=== PATIENT | female | born 2005 | race Hispanic/Latino ===

== ENCOUNTER 2025-09-09 16:09 | Emergency (ER) | payer SELFPAY ==
[~2025-09-09] VITALS: Ht 157.5 cm; Wt 72.6 kg
[2025-09-09 17:28] LABS: IMMATURE GRANULOCYTE ABSOLUTE 0.02 K/uL (0-1); NUCLEATED RED BLOOD CELLS 0.0 % (0.0-0.19); PLATELET COUNT (AUTO) 340 K/uL (130-400); RED BLOOD CELL COUNT(AUTO) 4.78 MIL/uL (4.00-5.50); RED CELL DISTRIBUTION WIDTH 13.6 % (11.0-15.5); WHITE BLOOD COUNT (AUTO) 9.4 K/uL (4.8-10.8)
[2025-09-09 17:36] LABS: CREATININE 0.6 mg/dL (0.5-1.0); GLOMERULAR FILTR. RATE CALC 132.0 mL/min (>90); GLUCOSE,RANDOM 88.0 mg/dL (70-105); SODIUM SERUM 138.0 mmol/L (136-145); UREA NITROGEN, BLOOD 9.0 mg/dL (7-18)
[2025-09-09] MEDS ORDERED: DOCU-116 PO (18:50)
--- NOTE | 2025-09-09 18:50 | ERN ---
ED Note History of Present Illness Stated Complaint: RECTAL BLEEDING Chief Complaint: Rectal Bleed Time Seen by MD: 16:19 Time Seen by Midlevel: 16:19 Dictation: The patient is a 20-year-old female with no past medical history who presents to the emergency department with complaints of bright red stools onset a month ago. Patient reports that bleeding is only when she has a bowel movement and reports rectal pain. Patient denies any abdominal pain, denies any constipation, denies any fevers, denies any nausea or vomiting. Allergies: Coded Allergies: No Known Drug Allergies (Unverified Allergy, Unknown, 09/09/25) Past Medical History Past Medical History: No Pertinent History Surgical History: None LMP: Aug 28, 2025 RN Note Reviewed/Agreed w/PFSH: Yes Review of System Dictation Constitutional: Negative for fever,chills, and weight loss Eyes: Negative for injury, pain,redness, and discharge ENT: Negative for injury,pain or swelling Cardiovascular: Negative for chest pain, palpitations, and edema Respiratory: Negative for shortness of breath, cough, and wheezing, Abdomen/GI: Negative for abdominal pain, nausea, vomiting, diarrhea, and constipation Back: Negative for injury and pain : Positive for rectal pain, bloody stools MS/Extremity: Negative for injury and deformity Skin: Negative for rash, and discoloration Neuro: Negative for headache, weakness, numbness, tingling, and seizure Psych: Negative for suicide ideation, homicidal ideation, and hallucinations Initial Vital Sign VS Vital Signs Date Time Temp Pulse Resp B/P (MAP) Pulse Ox O2 Delivery O2 Flow Rate FiO2 09/09/25 16:10 98.2 61 20 126/79 99 Room Air 09/09/25 18:34 0 21 Physical Exam Dictation Vital Signs reviewed General Appearance: Alert, oriented x 3, no acute distress, well developed, nourished. Head and Face: non-traumatic. Eyes: PERRL, pink conjunctivas, eyelid no trauma, anterior chamber with arcus senilis. Ears: Pinnas intact and no signs of trauma or erythema ear canals clear and no discharge TM no erythema Nose: No discharge, no bleeding. Oropharynx: Mouth normal, tongue pink. pharynx clear,no erythema, tonsils no exudates, no abscesses noted, mucous membrane moist Neck: Supple, non-tender, no thyromegaly, no masses, no JVD, no bruits Breast:Deferred Chest:No tenderness, no crepitus, no paradoxical movement, no retractions Lungs:Clear, well-ventilated, symmetric, no rales, no wheezing, no rhonchi, no stridor, good breath sounds bilaterally Heart: Regular rate, regular rhythm, no murmur, no gallops Vascular: no peripheral edema, Abdomen: Soft, positive bowel sounds, nondistended, no guarding, nontender, no rebound, no masses no hepatomegaly, no splenomegaly, no Cunningham's sign, no hernias. Rectal: Small internal hemorrhage around 1 o'clock no active bleeding Genital: Deferred Neurological: Normal speech, motor function intact, sensory function intact Musculoskeletal: Neck nontender, full range of motion, back nontender, full range of motion, Extremities: nontender, full range of motion Skin: Color pink, dry, no turgor, no rash, no lacerations, no abrasions, no contusions. Lymphatic: Deferred Results (Laboratory/Radiology) Laboratory/Radiology Laboratory Tests Test 09/09/25 17:22 White Blood Count 9.4 K/uL (4.8-10.8) Red Blood Count 4.78 MIL/uL (4.00-5.50) Hemoglobin 13.6 g/dL (12.0-16.0) Hematocrit 42.3 % (36-48) Mean Corpuscular Volume 88.5 fL (80-100) Mean Corpuscular Hemoglobin 28.5 pg (27.0-33.0) Mean Corpuscular Hemoglobin Concent 32.2 g/dL (32.0-36.0) Red Cell Distribution Width 13.6 % (11.0-15.5) Platelet Count 340 K/uL (130-400) Mean Platelet Volume 8.7 fL (7.5-10.5) Immature Granulocyte % (Auto) 0.2 % (0-1) Neutrophils (%) (Auto) 51.6 % (40.0-77.0) Lymphocytes (%) (Auto) 36.4 % (21.0-51.0) Monocytes (%) (Auto) 7.6 % (3.0-13.0) Eosinophils (%) (Auto) 3.8 % (0.0-8.0) Basophils (%) (Auto) 0.4 % (0.0-5.0) Neutrophils # (Auto) 4.9 K/uL (1.8-7.7) Lymphocytes # (Auto) 3.4 K/uL (1.0-4.8) Monocytes # (Auto) 0.7 K/uL (0.1-1.0) Eosinophils # (Auto) 0.36 K/uL (0.00-0.70) Basophils # (Auto) 0.04 K/uL (0.00-0.20) Absolute Immature Granulocyte (auto 0.02 K/uL (0-1) Nucleated Red Blood Cells 0.0 % (0.0-0.19) Sodium Level 138 mmol/L (136-145) Potassium Level 3.9 mmol/L (3.5-5.1) Chloride Level 105 mmol/L (101-111) Carbon Dioxide Level 29 mmol/L (21-32) Blood Urea Nitrogen 9 mg/dL (7-18) Creatinine 0.6 mg/dL (0.5-1.0) Glomerular Filtration Rate Calc 132 mL/min (>90) Random Glucose 88 mg/dL (70-105) Total Calcium 8.4 mg/dL (8.5-10.1) L Serum Test, Qualitative NEGATIVE (NEGATIVE) Labs Reviewed?: Yes ED Course ED Course Orders Procedure Category Date Status Time Cbc With Differential LAB 09/09/25 Complete 16:25 Basic Metabolic Panel LAB 09/09/25 Complete 16:25 Testing, LAB 09/09/25 Complete Serum Hcg 16:25 Vital Signs Date Time Temp Pulse Resp B/P (MAP) Pulse Ox O2 Delivery O2 Flow Rate FiO2 09/09/25 18:34 98.2 60 18 121/79 99 Room Air* 0 21 09/09/25 16:10 98.2 61 20 126/79 99 Room Air Medical Decision Making MDM The patient is a 20-year-old female with no past medical history who presents to the emergency department with complaints of bright red stools onset a month ago. Patient reports that bleeding is only when she has a bowel movement and reports rectal pain. Patient denies any abdominal pain, denies any constipation, denies any fevers, denies any nausea or vomiting. CBC showed no leukocytosis, no anemia, chemistry showed no electrolyte imbalance, normal renal function, negative hCG. Patient with a small in hemorrhoid at 1 o'clock, no active bleeding. Patient otherwise in no acute distress, nontoxic appearance, stable vital signs. Patient will be discharged to follow up with PCP. Differential diagnosis: GI bleed, hemorrhoids, anemia Need for hospitalization: Patient does not meet criteria for hospitalization. There are no social concerns with this patient. DX & DISP Disposition: Discharge Departure Impression: Primary Impression: Hemorrhoids Additional Impression: Rectal pain Condition: Stable Scripts Docusate Sodium (Colace) 100 Mg Capsule 100 MG PO TID for constipation, #30 CAP 0 Refills Prov: JESENIA LONGO [employer] 09/09/25 Additional Instructions: Your labs were unremarkable. The bleeding is probably coming from a small hemorrhoid. Follow up with your primary doctor in 1-2 days. Continue oral hydration at home, increase fiber intake to avoid constipation. If anything worsens please return to ER. FOLLOW-UP WITH PRIMARY CARE PROVIDER IN 1 TO 2 DAYS. TAKE MEDICATIONS DIRECTED HERE IN THE EMERGENCY ROOM. OKAY TO CONTINUE HOME MEDICATIONS UNLESS OTHERWISE DISCUSSED DURING YOUR VISIT IN THE EMERGENCY ROOM TODAY. RETURN TO YOUR NEAREST EMERGENCY ROOM IF SYMPTOMS WORSEN OR IF THERE IS NO IMPROVEMENT. CALL 911 IF YOU NEED IMMEDIATE ASSISTANCE. TAKE TYLENOL [id number] NEEDED AND IF NO CONTRAINDICATIONS ARE PRESENT. INCREASE ORAL HYDRATION. A WOUND CULTURE OR URINE CULTURE WAS ORDERED HERE IN THE EMERGENCY ROOM DEPARTMENT PLEASE FOLLOW-UP WITH PRIMARY CARE PROVIDER AND ADVISE THEM TO GET REPEAT PORTS FROM OUR FACILITY. IF YOU HAD ANY DELORIS WRAP/SPLINTS THAT WERE APPLIED HERE, PLEASE DO NOT REMOVE THEM UNTIL YOU SEE YOUR PRIMARY CARE OR SPECIALTY. Referrals: SELF,REFERRAL (PCP) Time of Disposition: 18:49 I have reviewed the case, and I agree with, Diagnosis and Plan JESENIA LONGO Sep 09, 2025 18:50
[2025-09-09 19:17] VITALS: BP 118/78; PULSE 64; RESP 18; TEMP 98.2; O2SAT 99
== END 2025-09-09 19:21 | disposition home or self-care (01) ==
LOC: EDH 16:09
DX: K64.9 Unspecified hemorrhoids (principal); K62.5 Hemorrhage of anus and rectum; K59.00 Constipation, unspecified
CPT/HCPCS: 36415; 80048; 84703; 85025; 99283